=== PATIENT | female | born 1990 | race Caucasian/White ===

== ENCOUNTER 2017-07-03 16:53 | Outpatient (CLI) | payer OTHER ==
[~2017-07-03] VITALS: Ht 154.9 cm; Wt 72.6 kg
[~2017-07-03 16:53] MED LIST: PRENATAL PLUS1 TA1 PO
[2017-07-03 17:03] VITALS: BP 112/65
== END 2017-07-03 18:28 | disposition home or self-care (01) ==
LOC: OBOUT 16:53 → OB 16:53 → OBOUT 18:28
DX: O26.892 Other specified pregnancy related conditions, second trimester (principal); Z3A.20 20 weeks gestation of pregnancy; V89.2XXS Person injured in unspecified motor-vehicle accident, traffic, sequela